=== PATIENT | male | born 1995 | race Caucasian/White ===

== ENCOUNTER 2022-08-18 15:26 | Emergency (ER) | payer SELFPAY ==
[~2022-08-18] VITALS: Ht 172.7 cm; Wt 90.0 kg
[2022-08-18] MEDS ORDERED: HYDR28.462 TP (16:45)
[2022-08-18] MEDS ORDERED: KETO15CR2 TP (16:45)
[2022-08-18 17:23] VITALS: BP 126/86
== END 2022-08-18 17:25 | disposition home or self-care (01) ==
LOC: ER 15:26
DX: R21 Rash and other nonspecific skin eruption (principal)
CPT/HCPCS: 99283